=== PATIENT | male | born 1985 | race Caucasian/White ===

== ENCOUNTER → 2022-06-20 | Outpatient (CLI) | payer OTHER ==
--- NOTE | 2022-06-21 09:50 | XR ---
EXAMINATION TYPE: XR hand complete LT DATE OF EXAM: 06/20/2022 COMPARISON: NONE HISTORY: Pain TECHNIQUE: Three views are submitted. FINDINGS: There is a mildly displaced fracture involving the shaft middle phalanx second digit. Remaining osseous structures intact. IMPRESSION: 1. Mildly displaced fracture middle phalanx second digit
== END | disposition home or self-care (01) ==
LOC: RADXRMAIN 16:12
PROVIDERS: ATTEND Nurse Practitioner
DX: M79.642 Pain in left hand (principal)